=== PATIENT | female | born 1960 | race Caucasian/White ===

== ENCOUNTER 2021-05-03 06:47 | Day surgery (SDC) | payer OTHER ==
[2021-04-30 11:02] VITALS: BMI 34.0
[2021-05-03] MEDS: CIPROFLOXACIN 0.3% EYE DROPS 5 ML BOTTLE ONE ×3 (07:25→07:35)
[2021-05-03] MEDS: PHENYLEPHRINE 2.5% OPHTH SOLN 15 ML BOTTLE ONE ×3 (07:25→07:35)
[2021-05-03] MEDS: TROPICAMIDE 1% OPHTH SOLN 15 ML BOTTLE ONE ×3 (07:25→07:35)
[2021-05-03] MEDS: CYCLOPENTOLATE 2% OPHTH SOLN 2 ML BOTTLE ONE ×3 (07:25→07:35)
[2021-05-03] MEDS ORDERED: TETRACAINE 0.5% OPHTH SOLN 2 ML BOTTLE ONE ×2 (07:32→07:37)
[2021-05-03] MEDS ORDERED: NEO/POLYMYX B SULF/DEXAMETH OPHTHALMIC 5ML BOTTLE ONE (07:37)
[2021-05-03] MEDS ORDERED: EPI-SHUGARCAINE (EPINEPHRINE 0.025% & LIDOCAINE-PF 0.75%) 4ML ONE (07:37)
[2021-05-03] MEDS ORDERED: POVIDONE-IODINE 5% OPHTHALMIC PREP 30 ML SOLUTION ONE (07:37)
[2021-05-03 09:41] VITALS: TEMP 97.8
[2021-05-03 09:59] VITALS: BP 135/74; PULSE 80
== END 2021-05-03 10:00 | disposition home or self-care (01) ==
LOC: FASU 06:47
PROVIDERS: ATTEND Ophthalmology
PROC: 08953ZZ Drainage of Left Vitreous, Percutaneous Approach (ICD-10-PCS; 2021-05-03)
PROC: 08RK3JZ Replacement of Left Lens with Synthetic Substitute, Percutaneous Approach (ICD-10-PCS; principal; 2021-05-03 08:34)
DX: H25.11 Age-related nuclear cataract, right eye (principal)